=== PATIENT | male | born 1965 | race African-American/Black ===

== ENCOUNTER 2019-04-04 13:33 | Inpatient (IN) | payer OTHER ==
[2019-04-04 14:43] VITALS: BMI 27.8
--- NOTE | 2019-04-04 16:53 | HP ---
COWS - Scale Resting Pulse: 1= [place] 81-100 Sweatin= Chills/Flushing Restless Observation: 3= Extraneous Movement Pupil Size: 1= Pupils >than Normal Bone or Joint Aches: 2= Severe Diffuse Aches Runny Nose/ Eye Tearin= Nasal Congestion GI Upset > 30mins: 1= Stomach Cramp Tremor Observation: 1= Tremor [place], Not Seen Yawning Observation: 1= 1-2x During Session Anxiety or Irritability: 1=Feels Anxious/Irritable Goose Flesh Skin: 3=Piloerection COWS Score: 16 CIWA Score - Admission Criteria OASAS Guidelines: Admission for Medically Managed Detox: Requires at least one of the followin. CIWA greater than 12 2. Seizures within the past 24 hours 3. Delirium tremens within the past 24 hours 4. Hallucinations within the past 24 hours 5. Acute intervention needed for co occurring medical disorder 6. Acute intervention needed for co occurring psychiatric disorder 7. Severe withdrawal that cannot be handled at a lower level of care (continued vomiting, continued diarrhea, abnormal vital signs) requiring intravenous medication and/or fluids 8. Admission ROS [facility] Chief Complaint: heroin detox Allergies/Adverse Reactions: Allergies Allergy/AdvReac Type Severity Reaction Status Date / Time No Known Allergies Allergy Verified 04/04/19 14:34 History of Present Illness: 54 yo with h/o renal disease from HTN and subsequent CVA in 2006, 2011. h/o RI . Has ICD in place since 09/2018. Was living in [place], moved to [place] a few months ago. Is on coumadin, metoprolol and amiodarone. Was in detox at [facility] last month and completed rehab. Relapsed within a few days. Says never in an MAT- methadone or suboxone. Worked in environmental services at a hospital. Does not have a PCP- lives in a residential. Heroin- IH, uses 10-15 bags, no h/o OD, had narcan kit cocaine- uses it only when using heroin 2 blunts of THC no alcohol, no other illicit. - Ebola screening Have you traveled outside of the country in the last 21 days: No Have you had contact with anyone from an Ebola affected area: No Do you have a fever: No - Review of Systems Constitutional: No Symptoms Reported EENT: reports: No Symptoms Reported Respiratory: reports: No Symptoms reported Cardiac: reports: No Symptoms Reported GI: reports: No Symptoms Reported : reports: No Symptoms Reported Musculoskeletal: reports: No Symptoms Reported Integumentary: reports: No Symptoms Reported Neuro: reports: No Symptoms reported Endocrine: reports: No Symptoms Reported Hematology: reports: No Symptoms Reported Psychiatric: reports: No Sypmtoms Reported Patient History - Patient Medical History Hx Cardiac Disorders: Yes (RI and ICD in place) Hx Hypertension: Yes Other Medical History: h/o CVA - Patient Surgical History Other Surgical History: ICD placement - PPD History Previous Implant?: No - Smoking Cessation Smoking history: Current every day smoker Have you smoked in the past 12 months: Yes Aproximately how many cigarettes per day: 7 Hx Chewing Tobacco Use: Yes Initiated information on smoking cessation: Yes 'Breaking Loose' booklet given: 04/04/19 - Substance & Tx. History Hx Alcohol Use: No Hx Substance Use: Yes Substance Use Type: Cocaine, Heroin, Marijuana - Substances abused Cocaine Substance route: Smoking Frequency: Daily Amount used: 6 bags Age of first use: 32 Date of last use: 04/03/19 Heroin Substance route: Inhalation Frequency: Daily Amount used: 10 to 15 bags Age of first use: 27 Date of last use: 04/03/19 Marijuana/Hashish Substance route: Smoking Frequency: 3-6 times per week Amount used: 1 blunt Age of first use: 22 Date of last use: 04/03/19 Admission Physical Exam BHS - Vital Signs Vital Signs: Vital Signs - 24 hr 04/04/19 14:36 Temperature 97.6 F Pulse Rate 83 Respiratory 12 Rate Blood Pressure 132/84 - Physical General Appearance: Yes: Within Normal Limits, Mild Distress HEENTM: Yes: Within Normal Limits, EOMI Respiratory: Yes: Within Normal Limits, Lungs Clear Neck: Yes: Within Normal Limits Cardiology: Yes: Within Normal Limits, Regular Rate, Other (has pacemaker in place) Abdominal: Yes: Within Normal Limits Genitourinary: Yes: Within Normal Limits Back: Yes: Within Normal Limits Musculoskeletal: Yes: Within Normal Limits Extremities: Yes: Within Normal Limits Neurological: Yes: Within Normal Limits Integumentary: Yes: Within Normal Limits Lymphatic: Yes: Within Normal Limits - Diagnostic (1) HTN (hypertension) Current Visit: Yes Status: Acute (2) Opioid use disorder Current Visit: Yes Status: Acute (3) Cocaine use disorder Current Visit: Yes Status: Acute (4) Marijuana smoker Current Visit: Yes Status: Acute (5) H/O myocardial infarction, greater than 8 weeks Current Visit: Yes Status: Acute (6) H/O: CVA (cerebrovascular accident) Current Visit: Yes Status: Acute (7) ICD (implantable cardioverter-defibrillator) in place Current Visit: Yes Status: Acute Breathalyzer - Breathalyzer Breathalyzer: 0 Urine Drug Screen - Test Device Lot number: [id number] Expiration date: 11/04/20 - Control Is test valid?: Yes - Results Drug screen NEGATIVE: No Urine drug screen results: THC-Marijuana, FORD-Cocaine, FEN-Fentanyl, MOP-Opiates , OXY-Oxycodone Inpatient Rehab Admission - Rehab Decision to Admit Inpatient rehab admission?: No
[2019-04-04] MEDS ORDERED: cloNIDine HCL 0.1 MG TABLET PO PRN (17:00)
[2019-04-04] MEDS ORDERED: MAGNESIUM CITRATE 300 ML BOTTLE PO PRN (17:00)
[2019-04-04] MEDS ORDERED: BISMUTH SUBSALICYLATE 524 MG/30 ML UD PO PRN (17:00)
[2019-04-04] MEDS ORDERED: MAG HYDROX/AL HYDROX/SIMETH 30 ML UNIT-DOSE CUP PO PRN (17:00)
[2019-04-04] MEDS ORDERED: MENTHOL/PHENOL 1 EACH UD MM PRN (17:00)
[2019-04-04] MEDS ORDERED: METHOCARBAMOL 500 MG TABLET PO PRN (17:00)
[2019-04-04] MEDS ORDERED: ACETAMINOPHEN 325 MG TABLET (FP) PO PRN ×2 (17:00)
[2019-04-04] MEDS ORDERED: hydrOXYzine PAMOATE 25 MG CAPSULE (FP) PO PRN (17:00)
[2019-04-04] MEDS ORDERED: IBUPROFEN 400 MG TABLET (FP) PO PRN (17:00)
[2019-04-04] MEDS ORDERED: NICOTINE POLACRILEX 2 MG GUM BUC PRN (17:00)
[2019-04-04] MEDS ORDERED: MAGNESIUM HYDROX 2400MG/30ML ORAL SUSPENSION 30 ML CUP PO PRN (17:00)
[2019-04-04] MEDS ORDERED: WARFARIN NA 7.5 MG TABLET (FP) PO SCH (17:15)
[2019-04-04] MEDS ORDERED: METHADONE HCL 10 MG TABLET (FOR DETOX USE ONLY) PO ONE (18:00)
[2019-04-04] MEDS: WARFARIN NA 7.5 MG TABLET (FP) PO SCH (18:44)
[2019-04-04] MEDS: THIAMINE HCL 100 MG TABLET (FP) PO SCH (22:21)
[2019-04-04] MEDS: MELATONIN 5 MG TABLETS PO PRN (22:22)
[2019-04-04] MEDS: clonazePAM 0.5 MG TABLET PO PRN (22:23)
[2019-04-05] MEDS ORDERED: METHADONE HCL 5 MG TABLET (FOR DETOX USE ONLY) ONE (09:32)
[2019-04-05] MEDS ORDERED: METHADONE HCL 10 MG TABLET (FOR DETOX USE ONLY) ONE (09:32)
[2019-04-05] MEDS ORDERED: METHADONE (DETOX) 20 MG, METHADONE (DETOX) 5 MG PO ONE (10:00)
[2019-04-05] MEDS: NICOTINE 14 MG/24 HOURS TOPICAL PATCH TD SCH (10:03)
[2019-04-05 10:04] LABS: HEMATOCRIT 35.4 % (35.4-49); MCH 23.7 pg (25.7-33.7); MCHC 31.1 g/dl (32.0-35.9); MEAN CELL VOLUME 76.4 fl (80-96); MEAN PLT VOLUME 8.6 fl (7.5-11.1); PLATELET COUNT 173 K/MM3 (134-434); RBC 4.63 M/mm3 (4.00-5.60); RDW 13.5 % (11.9-15.9); WHITE BLOOD COUNT 7.2 K/mm3 (4.0-10.0)
[2019-04-05] MEDS: AMIODARONE HCL 200 MG TABLET (FP) PO SCH (10:04)
[2019-04-05] MEDS: PRENATAL VITAMINS W/ FOLIC ACID TABLET (FP) PO SCH (10:04)
[2019-04-05 10:20] LABS: ALBUMIN 3.8 g/dl (3.4-5.0); BILIRUBIN,TOTAL 0.4 mg/dL (0.2-1); CALCIUM 9.1 mg/dL (8.5-10.1); CREATININE 1.6 mg/dL (0.55-1.3); POTASSIUM 4.4 mmol/L (3.5-5.1); TOT PROT 6.7 g/dl (6.4-8.2)
[2019-04-05] MEDS ORDERED: FLU VACCINE QUAD 60 MCG/0.5 ML (MDV 19-20) IM ONE (12:00)
--- NOTE | 2019-04-05 12:07 | EKG ---
Test Reason : Blood Pressure : / mmHG Vent. Rate : 072 BPM Atrial Rate : 072 BPM P-R Int : 156 ms QRS Dur : 102 ms QT Int : 392 ms P-R-T Axes : 064 050 000 degrees QTc Int : 429 ms NORMAL SINUS RHYTHM WITH SINUS ARRHYTHMIA SEPTAL INFARCT , AGE UNDETERMINED LATERAL INFARCT , AGE UNDETERMINED INFERIOR INFARCT , AGE UNDETERMINED ABNORMAL ECG NO PREVIOUS ECGS AVAILABLE Confirmed by LUC BROWN MD ([id number]) on 04/05/2019 12:07:26 PM Referred By: Confirmed By:LUC BROWN MD
--- NOTE | 2019-04-05 13:34 | CONSULT ---
[facility] Psychiatric Consult - Data Date of interview: 04/05/19 Admission source: [facility] Identifying data: First admission to [facility] for this 54 y/o AA male self- referred for detoxification (ANNABEL issues : heroin, cocaine, cannabis, nicotine). Interviewed at [address] [place] [address]. Patient is single, a father of eight, homeless and currently employed (highway maintenance crew worker). Substance Abuse History: Discussed with the patient. Details in current [facility] report as follows : Smoking history: Current every day smoker. Have you smoked in the past 12 months: Yes. Aproximately how many cigarettes per day: 7. Hx Chewing Tobacco Use: Yes. Initiated information on smoking cessation: Yes. ' Breaking Loose' booklet given: 04/04/19. - Substance & Tx. History. Hx Alcohol Use: No. Hx Substance Use: Yes. Substance Use Type: Cocaine, Heroin, Marijuana. - Substances abused. Cocaine. Substance route: Smoking. Frequency: Daily. Amount used: 6 bags. Age of first use: 32. Date of last use : 04/03/19. Heroin. Substance route: Inhalation. Frequency: Daily. Amount used: 10 to 15 bags. Age of first use: 27. Date of last use: 04/03/19. Marijuana/Hashish. Substance route: Smoking. Frequency: 3-6 times per week. Amount used: 1 blunt. Age of first use: 22. Date of last use: 04/03/19 Medical History: Medical profile is remarkable for two episodes of myocardial infarction, antecedents of cerebrovascular accidents (x2), implantable cardioverter defibrillator (ICD in place), hypertension and history of renal failure (HTN). Psychiatric History: No reported history of psychiatric hospitalizations. Patient endorses prior exposure to psychotropic medications (mirtazapine, wellbutrin, buspirone). Mr Flores indicates that he was diagnosed with Bipolar Disorder and Anxiety Disorder. He was reportedly followed at the [facility] clinic in [place]. Patient has also reported total non- adherence to psychiatric OPD care for about one year. Completely lost to follow- up (medical + psychiatric). No history of suicide attempts. Physical/Sexual Abuse/Trauma History: Patient denies history of abuse. Additional Comment: Urine drug screen results: THC-Marijuana, FORD-Cocaine, FEN- Fentanyl, MOP-Opiates, OXY-Oxycodone. Noted. Mental Status Exam - Mental Status Exam Alert and Oriented to: Time, Place, Person Cognitive Function: Good Patient Appearance: Well Groomed (covered with tattoos : upper extremities) Mood: Withdrawn, Anxious, Hopeful Affect: Mood Congruent, Constricted Patient Behavior: Fatigued, Appropriate, Cooperative Speech Pattern: Clear, Appropriate Voice Loudness: Normal Thought Process: Intact, Goal Oriented Thought Disorder: Not Present Hallucinations: Denies Suicidal Ideation: Denies Homicidal Ideation: Denies Insight/Judgement: Poor Sleep: Poorly, Difficulty falling asleep Appetite: Good Muscle strength/Tone: Normal Gait/Station: Normal Psychiatric Findings - Problem List ([place] 1, 2,3) (1) Cocaine use disorder Current Visit: Yes Status: Chronic (2) Opioid use disorder Current Visit: Yes Status: Chronic (3) Cannabis dependence Current Visit: Yes Status: Chronic (4) Nicotine dependence Current Visit: Yes Status: Chronic (5) Substance induced mood disorder Current Visit: Yes Status: Chronic (6) Anxiety disorder Current Visit: Yes Status: Chronic Comment: By history. (7) Insomnia Current Visit: Yes Status: Chronic (8) Non-compliance Current Visit: Yes Status: Chronic - Initial Treatment Plan Initial Treatment Plan: Psychoeducation. Sleep hygiene. Detoxification. Support. NA meetings. Medications resumed at patient's request : remeron 7.5 mg po hs + wellbutrin 75 mg po daily. Side effects/benefits discussed with patient. Verbal consent received from the patient. Observation.
--- NOTE | 2019-04-05 14:10 | PN ---
BHS COWS - Scale Resting Pulse: 1= [place] 81-100 Sweatin= Chills/Flushing Restless Observation: 0= Sits Still Pupil Size: 1= Pupils >than Normal Bone or Joint Aches: 1= Mild Discomfort Runny Nose/ Eye Tearin= Nasal Congestion GI Upset > 30mins: 0= None Tremor Observation of Outstretched Hands: 2= Slight Tremor Visible Yawning Observation: 1= 1-2x During Session Anxiety or Irritability: 2=Irritable/Anxious Goose Flesh Skin: 3=Piloerection COWS Score: 13 BHS Progress Note (SOAP) Subjective: 54 years old male admitted on 04/04/19 for opiate withdrawal sxs management treated with methadone detox regimen patient tolerate well patient is taking coumadin 7.5 mg po daily first admission no record of inr change inr order from 04/09 to 04/06/19 repeat bun Objective: 04/05/19 14:16 Vital Signs Temperature 99.4 F 04/05/19 13:09 Pulse Rate 85 04/05/19 13:09 Respiratory Rate 18 04/05/19 13:09 Blood Pressure 141/103 H 04/05/19 13:09 O2 Sat by Pulse Oximetry (%) Laboratory Last Values WBC 7.2 K/mm3 (4.0-10.0) 04/05/19 08:00 RBC 4.63 M/mm3 (4.00-5.60) 04/05/19 08:00 Hgb 11.0 GM/dL (11.7-16.9) L 04/05/19 08:00 Hct 35.4 % (35.4-49) 04/05/19 08:00 MCV 76.4 fl (80-96) L 04/05/19 08:00 MCH 23.7 pg (25.7-33.7) L 04/05/19 08:00 MCHC 31.1 g/dl (32.0-35.9) L 04/05/19 08:00 RDW 13.5 % (11.9-15.9) 04/05/19 08:00 Plt Count 173 K/MM3 (134-434) 04/05/19 08:00 MPV 8.6 fl (7.5-11.1) 04/05/19 08:00 Sodium 139 mmol/L (136-145) 04/05/19 08:00 Potassium 4.4 mmol/L (3.5-5.1) 04/05/19 08:00 Chloride 108 mmol/L (98-107) H 04/05/19 08:00 Carbon Dioxide 24 mmol/L (21-32) 04/05/19 08:00 Anion Gap 7 MMOL/L (8-16) L 04/05/19 08:00 BUN 23.0 mg/dL (7-18) H 04/05/19 08:00 Creatinine 1.6 mg/dL (0.55-1.3) H 04/05/19 08:00 Est GFR (CKD-EPI)AfAm 56.57 04/05/19 08:00 Est GFR (CKD-EPI)NonAf 48.81 04/05/19 08:00 Random Glucose 118 mg/dL (74-106) H 04/05/19 08:00 Calcium 9.1 mg/dL (8.5-10.1) 04/05/19 08:00 Total Bilirubin 0.4 mg/dL (0.2-1) 04/05/19 08:00 AST 21 U/L (15-37) 04/05/19 08:00 ALT 31 U/L (13-61) 04/05/19 08:00 Alkaline Phosphatase 76 U/L (45-117) 04/05/19 08:00 Total Protein 6.7 g/dl (6.4-8.2) 04/05/19 08:00 Albumin 3.8 g/dl (3.4-5.0) 04/05/19 08:00 RPR Titer Nonreactive (NONREACTIVE) 04/05/19 08:00 lab noted Assessment: 04/05/19 14:16 opiate withdrawal sx Plan: continue methadone detox regimen
[2019-04-05] MEDS: WARFARIN NA 7.5 MG TABLET (FP) PO SCH (17:53)
[2019-04-05] MEDS: MIRTAZAPINE 15 MG TABLET (FP) PO SCH (22:06)
[2019-04-05] MEDS: THIAMINE HCL 100 MG TABLET (FP) PO SCH (22:06)
[2019-04-05] MEDS: MELATONIN 5 MG TABLETS PO PRN (22:07)
[2019-04-06] MEDS ORDERED: METHADONE HCL 10 MG TABLET (FOR DETOX USE ONLY) PO ONE (10:00)
[2019-04-06] MEDS: AMIODARONE HCL 200 MG TABLET (FP) PO SCH (10:06)
[2019-04-06] MEDS: PRENATAL VITAMINS W/ FOLIC ACID TABLET (FP) PO SCH (10:06)
[2019-04-06] MEDS: buPROPion HCL 75 MG TABLET PO SCH (10:06)
[2019-04-06] MEDS: clonazePAM 0.5 MG TABLET PO PRN ×2 (10:07→22:25)
[2019-04-06] MEDS: NICOTINE 14 MG/24 HOURS TOPICAL PATCH TD SCH (10:07)
[2019-04-06 10:56] LABS: INR 1.03 (0.83-1.09); PROTHROMBIN TIME (PATIENT) 12.2 SEC (9.7-13.0)
--- NOTE | 2019-04-06 11:43 | PN ---
BHS COWS - Scale Resting Pulse: 0= [place] 80 or Below Sweatin= No chills or Flushing Restless Observation: 1= Difficult to Sit Still Pupil Size: 1= Pupils >than Normal Bone or Joint Aches: 1= Mild Discomfort Runny Nose/ Eye Tearin= Nasal Congestion GI Upset > 30mins: 1= Stomach Cramp Tremor Observation of Outstretched Hands: 2= Slight Tremor Visible Yawning Observation: 1= 1-2x During Session Anxiety or Irritability: 2=Irritable/Anxious Goose Flesh Skin: 0=Smooth Skin COWS Score: 10 BHS Progress Note (SOAP) Subjective: alert,irritable,anxious,interrupted sleep,pain in the body and back Objective: 04/06/19 11:38 Vital Signs Temperature 99.2 F 04/06/19 09:15 Pulse Rate 78 04/06/19 09:15 Respiratory Rate 18 04/06/19 09:15 Blood Pressure 150/96 04/06/19 09:15 O2 Sat by Pulse Oximetry (%) 04/06/19 11:39 Laboratory Last Values WBC 7.2 K/mm3 (4.0-10.0) 04/05/19 08:00 RBC 4.63 M/mm3 (4.00-5.60) 04/05/19 08:00 Hgb 11.0 GM/dL (11.7-16.9) L 04/05/19 08:00 Hct 35.4 % (35.4-49) 04/05/19 08:00 MCV 76.4 fl (80-96) L 04/05/19 08:00 MCH 23.7 pg (25.7-33.7) L 04/05/19 08:00 MCHC 31.1 g/dl (32.0-35.9) L 04/05/19 08:00 RDW 13.5 % (11.9-15.9) 04/05/19 08:00 Plt Count 173 K/MM3 (134-434) 04/05/19 08:00 MPV 8.6 fl (7.5-11.1) 04/05/19 08:00 PT with INR 12.20 SEC (9.7-13.0) 04/06/19 08:00 INR 1.03 (0.83-1.09) 04/06/19 08:00 Sodium 139 mmol/L (136-145) 04/05/19 08:00 Potassium 4.4 mmol/L (3.5-5.1) 04/05/19 08:00 Chloride 108 mmol/L (98-107) H 04/05/19 08:00 Carbon Dioxide 24 mmol/L (21-32) 04/05/19 08:00 Anion Gap 7 MMOL/L (8-16) L 04/05/19 08:00 BUN 20.2 mg/dL (7-18) H 04/06/19 08:00 Creatinine 1.6 mg/dL (0.55-1.3) H 04/05/19 08:00 Est GFR (CKD-EPI)AfAm 56.57 04/05/19 08:00 Est GFR (CKD-EPI)NonAf 48.81 04/05/19 08:00 Random Glucose 118 mg/dL (74-106) H 04/05/19 08:00 Calcium 9.1 mg/dL (8.5-10.1) 04/05/19 08:00 Total Bilirubin 0.4 mg/dL (0.2-1) 04/05/19 08:00 AST 21 U/L (15-37) 04/05/19 08:00 ALT 31 U/L (13-61) 04/05/19 08:00 Alkaline Phosphatase 76 U/L (45-117) 04/05/19 08:00 Total Protein 6.7 g/dl (6.4-8.2) 04/05/19 08:00 Albumin 3.8 g/dl (3.4-5.0) 04/05/19 08:00 RPR Titer Nonreactive (NONREACTIVE) 04/05/19 08:00 Assessment: 04/06/19 11:41 withdrawal symptom Plan: continue detox methadone regimen,repeat inr in am,psychiatric evaluation for buspar medication
[2019-04-06] MEDS: WARFARIN NA 7.5 MG TABLET (FP) PO SCH (17:26)
[2019-04-06] MEDS: MIRTAZAPINE 15 MG TABLET (FP) PO SCH (22:23)
[2019-04-06] MEDS: MELATONIN 5 MG TABLETS PO PRN (22:25)
[2019-04-06] MEDS: THIAMINE HCL 100 MG TABLET (FP) PO SCH (22:25)
[2019-04-07] MEDS ORDERED: METHADONE HCL 10 MG TABLET (FOR DETOX USE ONLY) ONE (08:51)
[2019-04-07] MEDS ORDERED: METHADONE HCL 5 MG TABLET (FOR DETOX USE ONLY) ONE (08:52)
[2019-04-07] MEDS: buPROPion HCL 75 MG TABLET PO SCH (09:42)
[2019-04-07] MEDS: AMIODARONE HCL 200 MG TABLET (FP) PO SCH (09:42)
[2019-04-07] MEDS: PRENATAL VITAMINS W/ FOLIC ACID TABLET (FP) PO SCH (09:43)
[2019-04-07] MEDS: NICOTINE 14 MG/24 HOURS TOPICAL PATCH TD SCH (09:48)
[2019-04-07] MEDS ORDERED: METHADONE (DETOX) 10 MG, METHADONE (DETOX) 5 MG PO ONE (10:00)
[2019-04-07 10:06] LABS: INR 1.07 (0.83-1.09); PROTHROMBIN TIME (PATIENT) 12.6 SEC (9.7-13.0)
--- NOTE | 2019-04-07 10:19 | PN ---
BHS COWS - Scale Resting Pulse: 0= [place] 80 or Below Sweatin= Chills/Flushing Restless Observation: 1= Difficult to Sit Still Pupil Size: 0= Normal to Room Light Bone or Joint Aches: 1= Mild Discomfort Runny Nose/ Eye Tearin= Runny Nose/Eyes GI Upset > 30mins: 0= None Tremor Observation of Outstretched Hands: 1= Tremor [place], Not Seen Yawning Observation: 2= >3x During Session Anxiety or Irritability: 2=Irritable/Anxious Goose Flesh Skin: 0=Smooth Skin COWS Score: 10 BHS Progress Note (SOAP) Subjective: Patient is a 54 yo AA male here for opioid detox d/t opioid use disorder, homeless residing in residential system with multiple commodities with hx of kidney disease, HTN, ICD on warfarin and Amiodarone. C/o interrupted sleep body aches and chills. Objective: 04/07/19 10:17 Vital Signs Temperature 98.9 F 04/07/19 09:01 Pulse Rate 60 04/07/19 09:01 Respiratory Rate 18 04/07/19 09:01 Blood Pressure 151/95 04/07/19 09:01 O2 Sat by Pulse Oximetry (%) Laboratory Last Values WBC 7.2 K/mm3 (4.0-10.0) 04/05/19 08:00 RBC 4.63 M/mm3 (4.00-5.60) 04/05/19 08:00 Hgb 11.0 GM/dL (11.7-16.9) L 04/05/19 08:00 Hct 35.4 % (35.4-49) 04/05/19 08:00 MCV 76.4 fl (80-96) L 04/05/19 08:00 MCH 23.7 pg (25.7-33.7) L 04/05/19 08:00 MCHC 31.1 g/dl (32.0-35.9) L 04/05/19 08:00 RDW 13.5 % (11.9-15.9) 04/05/19 08:00 Plt Count 173 K/MM3 (134-434) 04/05/19 08:00 MPV 8.6 fl (7.5-11.1) 04/05/19 08:00 PT with INR 12.60 SEC (9.7-13.0) 04/07/19 07:45 INR 1.07 (0.83-1.09) 04/07/19 07:45 Sodium 139 mmol/L (136-145) 04/05/19 08:00 Potassium 4.4 mmol/L (3.5-5.1) 04/05/19 08:00 Chloride 108 mmol/L (98-107) H 04/05/19 08:00 Carbon Dioxide 24 mmol/L (21-32) 04/05/19 08:00 Anion Gap 7 MMOL/L (8-16) L 04/05/19 08:00 BUN 20.2 mg/dL (7-18) H 04/06/19 08:00 Creatinine 1.6 mg/dL (0.55-1.3) H 04/05/19 08:00 Est GFR (CKD-EPI)AfAm 56.57 04/05/19 08:00 Est GFR (CKD-EPI)NonAf 48.81 04/05/19 08:00 Random Glucose 118 mg/dL (74-106) H 04/05/19 08:00 Calcium 9.1 mg/dL (8.5-10.1) 04/05/19 08:00 Total Bilirubin 0.4 mg/dL (0.2-1) 04/05/19 08:00 AST 21 U/L (15-37) 04/05/19 08:00 ALT 31 U/L (13-61) 04/05/19 08:00 Alkaline Phosphatase 76 U/L (45-117) 04/05/19 08:00 Total Protein 6.7 g/dl (6.4-8.2) 04/05/19 08:00 Albumin 3.8 g/dl (3.4-5.0) 04/05/19 08:00 RPR Titer Nonreactive (NONREACTIVE) 04/05/19 08:00 BUN improved from admission, reports hx of kidney disease Assessment: 04/07/19 14:40 Aox3 no acute distress no adventcious breath sounds full ROM ambulating in the unit withdrawal sx Plan: Patient d/c on 04/10/19 to [facility] for rehabilitation repeat INR BUN improve since admission labs Patient to follow up [facility] PCP upon discharge Continue detox Continue to monitor
--- NOTE | 2019-04-07 13:42 | PN ---
Psychiatric Progress Note Vital Signs: Vital Signs Period Temp Pulse Resp BP Sys/Walter Pulse Ox Last 24 Hr 97.1 F-98.9 F 60-74 18-18 119-151/81-95 Date of Session: 04/07/19 Chief Complaint:: " I need my buspar back." HPI: Hospital course is unremarkable. Patient requested to see the psychiatrist to discuss addition of buspirone to the regimen of medications. Doing fine. ROS: Unremarkable. Patient is ambulatory, cooperative and compliant with his treatment plan. Current Medications: Active Medications Generic Name Dose Route Start Last Admin Trade Name Freq PRN Reason Stop Dose Admin Acetaminophen 650 mg 04/04/19 17:00 Tylenol - PO Q6H PRN PAIN LEVEL 4 - 6 Acetaminophen 650 mg 04/04/19 17:00 Tylenol - PO Q6H PRN FEVER Al Hydroxide/Mg Hydroxide 30 ml 04/04/19 17:00 Mylanta Oral Suspension - PO Q6H PRN DYSPEPSIA Amiodarone HCl 200 mg 04/05/19 10:00 04/07/19 09:42 Cordarone - PO 200 mg DAILY CHELSEY Administration Bupropion HCl 75 mg 04/06/19 10:00 04/07/19 09:42 Wellbutrin - PO 75 mg DAILY CHELSEY Administration Clonazepam 0.5 mg 04/04/19 17:00 04/06/19 22:25 Klonopin - PO 0.5 mg Q6H PRN Administration Withdrawal Symptoms Eucalyptus/Menthol/Phenol/Sorbitol 1 each 04/04/19 17:00 Cepastat Lozenge - MM 04/10/19 17:00 Q4H PRN SORE THROAT Hydroxyzine Pamoate 25 mg 04/04/19 17:00 Vistaril - PO 04/10/19 17:00 Q6H PRN For Anxiety Magnesium Citrate 300 ml 04/04/19 17:00 Citroma - PO Q48H PRN CONSTIPATION Magnesium Hydroxide 30 ml 04/04/19 17:00 04/06/19 10:09 Milk Of Magnesia - PO 30 ml PRN PRN Administration CONSTIPATION Melatonin 5 mg 04/04/19 17:00 04/06/19 22:25 Melatonin PO 5 mg HS PRN Administration INSOMNIA Methadone HCl 5 mg 04/09/19 06:00 Dolophine - PO 04/09/19 06:01 ONCE@0600 ONE Methadone HCl 10 mg 04/08/19 10:00 Dolophine - PO 04/08/19 10:01 ONCE ONE Methocarbamol 500 mg 04/04/19 17:00 04/05/19 10:05 Robaxin - PO 04/10/19 17:00 500 mg Q6H PRN Administration MUSCLE SPASMS Metoprolol Succinate 50 mg 04/05/19 10:00 04/07/19 09:42 Toprol Xl - PO 50 mg DAILY CHELSEY Administration Mirtazapine 7.5 mg 04/05/19 22:00 04/06/19 22:23 Remeron - PO 7.5 mg HS CHELSEY Administration Nicotine 14 mg 04/05/19 10:00 04/07/19 09:48 Nicoderm Patch - TD 14 mg DAILY CHELSEY Administration Nicotine Polacrilex 2 mg 04/04/19 17:00 Nicorette Gum - BUC Q2H PRN NICOTINE REPLACEMENT RX Multivit/Folic Acid/Iron 1 tab 04/05/19 10:00 04/07/19 09:43 Vitamins (Sjr) - PO 1 tab DAILY CHELSEY Administration Thiamine HCl 100 mg 04/04/19 22:00 04/06/19 22:25 Vitamin B1 - PO 100 mg HS CHELSEY Administration Warfarin Sodium 7.5 mg 04/04/19 18:00 04/06/19 17:26 Coumadin - PO 7.5 mg DAILY@1800 CHELSEY Administration Medication(s) Change(s): Yes. Changes : buspar 5 mg po bid is added and mirtazapine is raised, at patient's request, to 15 mg po hs. Side effects/ benefits revisited with the patient. Mr Flores verbalizes his agreement with this plan of care. Current Side Effect: No Lab tests ordered: No Lab tests reviewed: Yes Provider note:: Chart reviewed. Met with the patient. Concerns (titration of mirtazapine + addition of buspirone) are addressed. Patient remains cooperative with his care. Noted as well-controlled, goal-directed, pleasant on approach, well groomed and visible on the unit. Stable mental status. See MSE report for details. Mr Flores is at his baseline. Total face to face time:: 25 Mental Status Exam - Mental Status Exam Alert and Oriented to: Time, Place, Person Cognitive Function: Good Patient Appearance: Well Groomed Mood: Hopeful, Euthymic Affect: Appropriate, Normal Range Patient Behavior: Appropriate, Cooperative Speech Pattern: Clear Voice Loudness: Normal Thought Process: Intact, Goal Oriented Thought Disorder: Not Present Hallucinations: Denies Suicidal Ideation: Denies Homicidal Ideation: Denies Insight/Judgement: Fair Sleep: Poorly, Difficulty falling asleep Appetite: Good Muscle strength/Tone: Normal Gait/Station: Normal Psychiatric Treatment Plan - Problem List (1) Insomnia Current Visit: Yes Comment: . (2) Cocaine use disorder Current Visit: Yes Comment: . (3) Opioid use disorder Current Visit: Yes Comment: . (4) Cannabis dependence Current Visit: Yes Comment: . (5) Nicotine dependence Current Visit: Yes Comment: . (6) Substance induced mood disorder Current Visit: Yes Comment: . (7) Anxiety disorder Current Visit: Yes Comment: .By history.
[2019-04-07] MEDS: WARFARIN NA 7.5 MG TABLET (FP) PO SCH (17:15)
[2019-04-07] MEDS: THIAMINE HCL 100 MG TABLET (FP) PO SCH (22:02)
[2019-04-07] MEDS: busPIRone HCL 5 MG TABLET PO SCH (22:02)
[2019-04-07] MEDS: MIRTAZAPINE 15 MG TABLET (FP) PO SCH (22:02)
--- NOTE | 2019-04-08 09:48 | PN ---
BHS COWS - Scale Resting Pulse: 0= [place] 80 or Below Sweatin= Chills/Flushing Restless Observation: 0= Sits Still Pupil Size: 0= Normal to Room Light Bone or Joint Aches: 1= Mild Discomfort Runny Nose/ Eye Tearin= None GI Upset > 30mins: 0= None Tremor Observation of Outstretched Hands: 0= None Yawning Observation: 1= 1-2x During Session Anxiety or Irritability: 1=Feels Anxious/Irritable Goose Flesh Skin: 0=Smooth Skin COWS Score: 4 S Progress Note (SOAP) Subjective: c/o sweats and mild anxiety. Objective: 04/08/19 09:45 Vital Signs 04/08/19 04/08/19 03:30 09:03 Temperature 98.2 F Pulse Rate 69 Respiratory 18 18 Rate Blood Pressure 126/94 Lab Results WBC 7.2 K/mm3 (4.0-10.0) 04/05/19 08:00 RBC 4.63 M/mm3 (4.00-5.60) 04/05/19 08:00 Hgb 11.0 GM/dL (11.7-16.9) L 04/05/19 08:00 Hct 35.4 % (35.4-49) 04/05/19 08:00 MCV 76.4 fl (80-96) L 04/05/19 08:00 MCHC 31.1 g/dl (32.0-35.9) L 04/05/19 08:00 RDW 13.5 % (11.9-15.9) 04/05/19 08:00 Plt Count 173 K/MM3 (134-434) 04/05/19 08:00 Sodium 139 mmol/L (136-145) 04/05/19 08:00 Potassium 4.4 mmol/L (3.5-5.1) 04/05/19 08:00 Chloride 108 mmol/L (98-107) H 04/05/19 08:00 Carbon Dioxide 24 mmol/L (21-32) 04/05/19 08:00 Anion Gap 7 MMOL/L (8-16) L 04/05/19 08:00 BUN 20.2 mg/dL (7-18) H 04/06/19 08:00 Creatinine 1.6 mg/dL (0.55-1.3) H 04/05/19 08:00 Random Glucose 118 mg/dL (74-106) H 04/05/19 08:00 Calcium 9.1 mg/dL (8.5-10.1) 04/05/19 08:00 INR 1.07 (0.83-1.09) 04/07/19 07:45 Labs noted. Assessment: 04/08/19 09:46 AOX3, in no acute respiratory distress. Full ROM, ambulating in the unit. Mild withdrawal symptoms. Plan: continue detox.
[2019-04-08] MEDS ORDERED: METHADONE HCL 10 MG TABLET (FOR DETOX USE ONLY) PO ONE (10:00)
[2019-04-08] MEDS: buPROPion HCL 75 MG TABLET PO SCH (10:14)
[2019-04-08] MEDS: clonazePAM 0.5 MG TABLET PO PRN (10:14)
[2019-04-08] MEDS: PRENATAL VITAMINS W/ FOLIC ACID TABLET (FP) PO SCH (10:14)
[2019-04-08] MEDS: AMIODARONE HCL 200 MG TABLET (FP) PO SCH (10:15)
[2019-04-08] MEDS: NICOTINE 14 MG/24 HOURS TOPICAL PATCH TD SCH (10:17)
[2019-04-08] MEDS: busPIRone HCL 5 MG TABLET PO SCH ×2 (10:17→22:18)
[2019-04-08] MEDS: WARFARIN NA 7.5 MG TABLET (FP) PO SCH (18:05)
[2019-04-08] MEDS: THIAMINE HCL 100 MG TABLET (FP) PO SCH (22:18)
[2019-04-08] MEDS: MIRTAZAPINE 15 MG TABLET (FP) PO SCH (22:18)
[2019-04-09] MEDS ORDERED: METHADONE HCL 5 MG TABLET (FOR DETOX USE ONLY) PO ONE (06:00)
[2019-04-09] MEDS: buPROPion HCL 75 MG TABLET PO SCH (10:38)
[2019-04-09] MEDS: PRENATAL VITAMINS W/ FOLIC ACID TABLET (FP) PO SCH (10:38)
[2019-04-09] MEDS: busPIRone HCL 5 MG TABLET PO SCH ×2 (10:39→22:07)
[2019-04-09] MEDS: NICOTINE 14 MG/24 HOURS TOPICAL PATCH TD SCH (10:39)
[2019-04-09] MEDS: AMIODARONE HCL 200 MG TABLET (FP) PO SCH (10:40)
--- NOTE | 2019-04-09 14:22 | DS ---
[facility] Detox Discharge Summary Admission Date: 04/04/19 Discharge Date: 04/09/19 - History Present History: Opioid Dependence Additional Comments: 54 years old male admitted on 04/04/19 for opiate withdrawal sx management treated with methadone detox regimen patient tolerated well patient is alert oriented x 3 respiratory clear lung bilaterally on auscultatin abdomen soft no rebound tenderness extremities full range of motion Pertinent Past History: discuss cardiovascular related opiate addiction strong recommend that patient follow up with primary care sales consultant in the community - Physical Exam Results Vital Signs: Vital Signs Temperature 98.7 F 04/09/19 13:32 Pulse Rate 72 04/09/19 13:32 Respiratory Rate 18 04/09/19 13:32 Blood Pressure 147/97 04/09/19 13:32 O2 Sat by Pulse Oximetry (%) Pertinent Admission Physical Exam Findings: opiate withdrawal sx Laboratory Last Values WBC 7.2 K/mm3 (4.0-10.0) 04/05/19 08:00 RBC 4.63 M/mm3 (4.00-5.60) 04/05/19 08:00 Hgb 11.0 GM/dL (11.7-16.9) L 04/05/19 08:00 Hct 35.4 % (35.4-49) 04/05/19 08:00 MCV 76.4 fl (80-96) L 04/05/19 08:00 MCH 23.7 pg (25.7-33.7) L 04/05/19 08:00 MCHC 31.1 g/dl (32.0-35.9) L 04/05/19 08:00 RDW 13.5 % (11.9-15.9) 04/05/19 08:00 Plt Count 173 K/MM3 (134-434) 04/05/19 08:00 MPV 8.6 fl (7.5-11.1) 04/05/19 08:00 PT with INR 12.60 SEC (9.7-13.0) 04/07/19 07:45 INR 1.07 (0.83-1.09) 04/07/19 07:45 Sodium 139 mmol/L (136-145) 04/05/19 08:00 Potassium 4.4 mmol/L (3.5-5.1) 04/05/19 08:00 Chloride 108 mmol/L (98-107) H 04/05/19 08:00 Carbon Dioxide 24 mmol/L (21-32) 04/05/19 08:00 Anion Gap 7 MMOL/L (8-16) L 04/05/19 08:00 BUN 20.2 mg/dL (7-18) H 04/06/19 08:00 Creatinine 1.6 mg/dL (0.55-1.3) H 04/05/19 08:00 Est GFR (CKD-EPI)AfAm 56.57 04/05/19 08:00 Est GFR (CKD-EPI)NonAf 48.81 04/05/19 08:00 Random Glucose 118 mg/dL (74-106) H 04/05/19 08:00 Calcium 9.1 mg/dL (8.5-10.1) 04/05/19 08:00 Total Bilirubin 0.4 mg/dL (0.2-1) 04/05/19 08:00 AST 21 U/L (15-37) 04/05/19 08:00 ALT 31 U/L (13-61) 04/05/19 08:00 Alkaline Phosphatase 76 U/L (45-117) 04/05/19 08:00 Total Protein 6.7 g/dl (6.4-8.2) 04/05/19 08:00 Albumin 3.8 g/dl (3.4-5.0) 04/05/19 08:00 RPR Titer Nonreactive (NONREACTIVE) 04/05/19 08:00 lab noted - Treatment Hospital Course: Detox Protocol Followed, Detoxed Safely, Responded well, Discharged Condition Good, Rehab Referral Accepted Patient has Accepted a Rehab Referral to: medication assisted treatment program - Medication Discharge Medications: Ambulatory Orders Amiodarone HCl 200 mg PO DAILY 04/04/19 Metoprolol Succinate [Toprol Xl] 50 mg PO DAILY 04/04/19 Warfarin Sodium 7.5 mg PO DAILY 04/04/19 - Diagnosis (1) HTN (hypertension) Current Visit: Yes Status: Chronic Qualifiers: Hypertension type: essential hypertension Qualified Code(s): I10 - Essential (primary) hypertension (2) ICD (implantable cardioverter-defibrillator) in place Current Visit: Yes Status: Chronic (3) Nicotine dependence Current Visit: Yes Status: Acute Qualifiers: Nicotine product type: cigarettes Substance use status: in withdrawal Qualified Code(s): F17.213 - Nicotine dependence, cigarettes, with withdrawal (4) Opioid use disorder Current Visit: Yes Status: Acute (5) Substance induced mood disorder Current Visit: Yes Status: Suspected - AMA Did Patient Leave Against Medical Advice: No COWS (PN) - Opiate Withdrawal Resting Pulse: 0= AR 80 or Below Sweatin= Chills/Flushing Restless Observation: 0= Sits Still Pupil Size: 0= Normal to Room Light Bone or Joint Aches: 1= Mild Discomfort Runny Nose/ Eye Tearin= None GI Upset > 30mins: 0= None Tremor Observation of Outstretched Hands: 0= None Yawning Observation: 0= None Anxiety or Irritability: 0= None Goose Flesh Skin: 0=Smooth Skin COWS Score: 2
[2019-04-09] MEDS: THIAMINE HCL 100 MG TABLET (FP) PO SCH (22:07)
[2019-04-09] MEDS: MIRTAZAPINE 15 MG TABLET (FP) PO SCH (22:07)
[2019-04-10] MEDS ORDERED: TRIMETHOBENZAMIDE HCL 200MG/2ML INJ IM PRN ×2 (02:12→02:27)
[2019-04-10] MEDS ORDERED: ONDANSETRON *ODT* 4 MG TABLET SL PRN (04:36)
[2019-04-10] MEDS ORDERED: METHADONE HCL 10 MG/1 ML (20ML VIAL) IM ONE (04:57)
--- NOTE | 2019-04-10 05:18 | PN ---
[facility] COWS - Scale Resting Pulse: 0= SC 80 or Below Sweatin= Chills/Flushing Restless Observation: 1= Difficult to Sit Still Pupil Size: 0= Normal to Room Light Bone or Joint Aches: 4=Acute Joint/Muscle Pain Runny Nose/ Eye Tearin= Nasal Congestion GI Upset > 30mins: 1= Stomach Cramp Tremor Observation of Outstretched Hands: 0= None Yawning Observation: 0= None Anxiety or Irritability: 2=Irritable/Anxious Goose Flesh Skin: 0=Smooth Skin COWS Score: 10 [facility] Progress Note (SOAP) Subjective: C/O CHILLS, N/V, SWEATS, AND ACUTE BODY ACHES. REPORTS INTERMITTENT C.P. POINTING TO HIS EPIGASTRIC REGION. DENIES WEAKNESS, NUMBNESS, RADIATING PAIN, DIZZINESS, SOB. Objective: 04/10/19 05:13 SEEN LYING IN BED A/0 X3 MILD DISTRESS, COVERED WITH SHEETS AND BLANKETS THAT ARE SLIGHTLY MOIST HEAD- PERRLA,EOMI CV-RRR LUNGS-CTAB SKIN-MOIST EXTREMITES- NEG TREMORS, GOOD STRENGTH NOTED X 4 VS 175/111, P-61, 18, T- 98.1 Assessment: 04/10/19 05:15 OPIOID WITHDRAWAL Plan: CLIENT WAS SCHEDULED FOR DC ONE DAY EARLY. DID NOT TAKE HIS LAST DOSE OF METHADONE. DECIDED TO STAY TILL TODAY FOR TRANSPORTATION REASONS SO THAT HE CAN BE TRANSFERRED TO HIS AFTERCARE. MILD ACUTE WITHDRAWAL NOTED. JORDAN ORDERED METHADONE 10 MG IM X 1 DOSE NOW CONT TO MONITOR CLINICALLY
[2019-04-10 09:18] VITALS: BP 160/93; PULSE 71; TEMP 97.6
--- NOTE | 2019-04-10 11:32 | DS ---
[facility] Detox Discharge Summary Admission Date: 04/04/19 Discharge Date: 04/10/19 - History Present History: Opioid Dependence Additional Comments: 54 years old male admitted on 04/04/19 for opiate withdrawal sx management treated with methadone detox regimen long history of cardiac arrhythemia treated with cardiac defibrillator implantation patient requests to be discharge on 04/09/19 medical evaluation no abnormal noted patient remain on the detox unit till 04/10/19 developed nausea and vomiting overnight treated with methadone 10 mg IM observed patient resting on bed "I do not feel good" recommend transferred to ER evaluation patient refused to go to the ER nurse, counselor, provider met with the patient discuss risks of against medical advice patient is alert oriented x 3 speech clearly coherently refuses physical examine denies suicidal ideation refuses cows Pertinent Past History: strong recommend stop smoking cigarette and risks of opiate abuse patient left the detox unit around 0930 am today around [id number] lobby rapid response call observed patient sitting on chair with oxygen nasal c/o chest pain 911 called patient appeared agrees to ER for evaluation information provided to ER due to the patient not arrived ER at this time proposition" patient may return to [facility] for [facility]iate [facility]hab - Physical Exam Results Vital Signs: Vital Signs Temperature 97.6 F 04/10/19 09:17 Pulse Rate 71 04/10/19 09:17 Respiratory Rate 18 04/10/19 09:17 Blood Pressure 160/93 04/10/19 09:17 O2 Sat by Pulse Oximetry (%) Pertinent Admission Physical Exam Findings: opiate withdrawal sx Laboratory Last Values WBC 7.2 K/mm3 (4.0-10.0) 04/05/19 08:00 RBC 4.63 M/mm3 (4.00-5.60) 04/05/19 08:00 Hgb 11.0 GM/dL (11.7-16.9) L 04/05/19 08:00 Hct 35.4 % (35.4-49) 04/05/19 08:00 MCV 76.4 fl (80-96) L 04/05/19 08:00 MCH 23.7 pg (25.7-33.7) L 04/05/19 08:00 MCHC 31.1 g/dl (32.0-35.9) L 04/05/19 08:00 RDW 13.5 % (11.9-15.9) 04/05/19 08:00 Plt Count 173 K/MM3 (134-434) 04/05/19 08:00 MPV 8.6 fl (7.5-11.1) 04/05/19 08:00 PT with INR 12.60 SEC (9.7-13.0) 04/07/19 07:45 INR 1.07 (0.83-1.09) 04/07/19 07:45 Sodium 139 mmol/L (136-145) 04/05/19 08:00 Potassium 4.4 mmol/L (3.5-5.1) 04/05/19 08:00 Chloride 108 mmol/L (98-107) H 04/05/19 08:00 Carbon Dioxide 24 mmol/L (21-32) 04/05/19 08:00 Anion Gap 7 MMOL/L (8-16) L 04/05/19 08:00 BUN 20.2 mg/dL (7-18) H 04/06/19 08:00 Creatinine 1.6 mg/dL (0.55-1.3) H 04/05/19 08:00 Est GFR (CKD-EPI)AfAm 56.57 04/05/19 08:00 Est GFR (CKD-EPI)NonAf 48.81 04/05/19 08:00 Random Glucose 118 mg/dL (74-106) H 04/05/19 08:00 Calcium 9.1 mg/dL (8.5-10.1) 04/05/19 08:00 Total Bilirubin 0.4 mg/dL (0.2-1) 04/05/19 08:00 AST 21 U/L (15-37) 04/05/19 08:00 ALT 31 U/L (13-61) 04/05/19 08:00 Alkaline Phosphatase 76 U/L (45-117) 04/05/19 08:00 Total Protein 6.7 g/dl (6.4-8.2) 04/05/19 08:00 Albumin 3.8 g/dl (3.4-5.0) 04/05/19 08:00 RPR Titer Nonreactive (NONREACTIVE) 04/05/19 08:00 lab noted - Treatment Hospital Course: Detox Protocol Followed, Responded well Patient has Accepted a Rehab Referral to: [facility] - Medication Discharge Medications: Ambulatory Orders Amiodarone HCl 200 mg PO DAILY 04/04/19 Metoprolol Succinate [Toprol Xl] 50 mg PO DAILY 04/04/19 Warfarin Sodium 7.5 mg PO DAILY 04/04/19 - Diagnosis (1) HTN (hypertension) Status: Chronic Qualifiers: Hypertension type: essential hypertension Qualified Code(s): I10 - Essential (primary) hypertension (2) ICD (implantable cardioverter-defibrillator) in place Status: Chronic (3) Nicotine dependence Status: Acute Qualifiers: Nicotine product type: cigarettes Substance use status: in withdrawal Qualified Code(s): F17.213 - Nicotine dependence, cigarettes, with withdrawal (4) Opioid use disorder Status: Acute (5) Substance induced mood disorder Status: Suspected - AMA Did Patient Leave Against Medical Advice: Yes
== END 2019-04-10 09:34 | disposition left against medical advice (07) | DRG 770 ==
LOC: YASAS 13:33 → Y3N 17:33
PROVIDERS: ADMIT Allergy & Immunology; ATTEND Allergy & Immunology
PROC: HZ2ZZZZ Detoxification Services for Substance Abuse Treatment (ICD-10-PCS; principal; 2019-04-04)
DX: F11.23 Opioid dependence with withdrawal (principal); F14.20 Cocaine dependence, uncomplicated; F12.20 Cannabis dependence, uncomplicated; F17.213 Nicotine dependence, cigarettes, with withdrawal; F19.24 Other psychoactive substance dependence with psychoactive substance-induced mood disorder; F41.9 Anxiety disorder, unspecified; I10 Essential (primary) hypertension; G47.00 Insomnia, unspecified; I25.2 Old myocardial infarction; Z79.01 Long term (current) use of anticoagulants; Z86.73 Personal history of transient ischemic attack (TIA), and cerebral infarction without residual deficits; Z95.810 Presence of automatic (implantable) cardiac defibrillator; Z91.14 Patient's other noncompliance with medication regimen
CPT/HCPCS: 36415; 80053; 84520; 85027; 85610; 86593; 93005; 93010; J0735